=== PATIENT | female | born 1985 | race African-American/Black ===

== ENCOUNTER 2019-05-06 14:33 | Emergency (ER) | payer MEDICAID ==
[~2019-05-06] VITALS: Ht 172.7 cm; Wt 63.0 kg
[2019-05-06 20:36] VITALS: BP 129/70
== END 2019-05-06 20:36 | disposition home or self-care (01) ==
LOC: ER 14:55
DX: E11.9 Type 2 diabetes mellitus without complications (principal); F12.10 Cannabis abuse, uncomplicated; Z86.19 Personal history of other infectious and parasitic diseases
CPT/HCPCS: 99283